=== PATIENT | female | born 1995 | race Caucasian/White ===

== ENCOUNTER 2023-03-19 14:16 | Emergency (ER) | payer OTHER, MEDICAID ==
[~2023-03-19] VITALS: Ht 160 cm; Wt 52.0 kg
[2023-03-19] MEDS ORDERED: SODIUM CHLORIDE 0.9% 1,000 ML IV ONE (14:45)
[2023-03-19 15:04] LABS: Basophils # (auto) 0 10 ^3/uL (0-0.2); Basophils % (auto) 0.5 % (0.0-2.0); Eosinophils # (auto) 0.1 10 ^3/uL (0-0.8); Eosinophils % (auto) 0.5 % (0.0-7.0); Hematocrit 42.2 % (36.0-46.0); Hemoglobin 14.1 g/dL (12.2-16.2); Lymphocytes % (auto) 9.1 % (10.0-50.0); Mean Corpuscular Hemoglobin 30.2 pg (28.0-32.0); Mean Corpuscular Hgb Conc. 33.3 g/dL (32.0-36.0); Mean Corpuscular Volume 90.6 fL (80.0-100.0); Monocytes # (auto) 0.7 10 ^3/uL (0-1.3); Monocytes % (auto) 6.9 % (0.0-12.0); Neutrophils # (auto) 8.8 10 ^3/uL (1.6-8.6); Nucleated Red Blood Cells % 0.1 %; Red Blood Cells 4.66 10^6/uL (4.0-5.20); Red Cell Distribution Width 13.2 % (11.8-14.3); White Blood Cell 10.6 10^3/uL (4.4-10.8)
[2023-03-19 15:16] VITALS: BP 110/70
[2023-03-19 16:21] LABS: Potassium 3.8 mmol/L (3.5-5.1)
[2023-03-19 16:27] LABS: Albumin 4.2 g/dL (3.4-5.0); BUN/Creatinine Ratio 17.6 (10.0-20.0); Bilirubin, Total 0.5 mg/dL (0.2-1.0); Calcium 9.4 mg/dL (8.5-10.1); Total Protein 6.8 g/dL (6.4-8.2)
== END 2023-03-19 15:14 | disposition left against medical advice (07) ==
LOC: EDBD 14:16 → ER 14:16
DX: R10.13 Epigastric pain (principal); R10.2 Pelvic and perineal pain
CPT/HCPCS: 36415; 80053; 84702; 85025